=== PATIENT | male | born 1960 | race Caucasian/White ===

== ENCOUNTER 2018-04-21 15:08 | Inpatient (IN) | payer BC ==
[~2018-04-21] VITALS: Ht 179.1 cm; Wt 113.4 kg
[2018-04-21] MEDS ORDERED: LISINOPRIL40 MG PO (15:30)
[2018-04-21 18:03] LABS: BASOPHIL % 0.5 % (0-2); PLATELET COUNT 245 x10^3mcL (130-400); RED CELL DISTRIBUTION WIDTH 14.4 % (11.5-14.5)
[2018-04-21 18:08] LABS: CALCIUM 8.4 mg/dL (8.5-10.1); CARBON DIOXIDE 28.6 mmol/L (21-32); CHLORIDE SERUM 109 mmol/L (98-107); CREATININE SERUM 1.1 mg/dL (0.7-1.3); GFR1 > 60 mL/min; GLUCOSE SERUM 158 mg/dL (74-106); POTASSIUM SERUM 4.5 mmol/L (3.5-5.1); SODIUM SERUM 147 mmol/L (136-145)
[2018-04-21 18:12] LABS: ALBUMIN 3.8 g/dL (3.4-5.0); ALKALINE PHOSPHATASE 82 U/L (46-116); ALT/SGPT 67 U/L (16-63); AST/SGOT 34 U/L (15-37); BILIRUBIN TOTAL 0.28 mg/dL (0.20-1.00); LIPASE 127 IU/L (73-393); TOTAL PROTEIN, SERUM 7.1 g/dL (6.4-8.2)
[2018-04-21 18:50] LABS: T3 TOTAL 1.06 ng/mL
[2018-04-21 18:52] LABS: FREE T4 0.85 ng/dL (0.76-1.46); FREE THYROXINE INDEX 2.5 ug/dL (1.4-4.5); T4(THYROXINE) 7.5 ug/dL (4.7-13.3)
[2018-04-21 18:58] LABS: CHOLESTEROL/HDL RATIO 3.9; MAGNESIUM 1.9 mg/dL (1.8-2.4); PHOSPHOROUS 3.4 mg/dL (2.5-4.9)
[2018-04-21 19:17] LABS: microscopic required? YES; urine erythrocyte NEGATIVE (NEGATIVE)
[2018-04-21 19:32] LABS: AMPHETAMINE QUAL UR NONE DETECTED (NEG <=1000)
[2018-04-21 19:58] VITALS: BP 165/100
[2018-04-21 20:00] VITALS: BP 166/96
[2018-04-21 21:54] VITALS: BP 166/96
[2018-04-22] VITALS (9 sets, daily range): BP systolic 131–190; BP diastolic 75–110
[2018-04-22 06:33] LABS: CALCIUM 8.4 mg/dL (8.5-10.1); CARBON DIOXIDE 28.6 mmol/L (21-32); CHLORIDE SERUM 105 mmol/L (98-107); CREATININE SERUM 1.1 mg/dL (0.7-1.3); GFR1 > 60 mL/min; GLUCOSE SERUM 112 mg/dL (74-106); POTASSIUM SERUM 3.9 mmol/L (3.5-5.1); SODIUM SERUM 142 mmol/L (136-145)
[2018-04-22 07:49] LABS: BASOPHIL % 0.4 % (0-2); PLATELET COUNT 264 x10^3mcL (130-400); RED CELL DISTRIBUTION WIDTH 14.1 % (11.5-14.5)
[2018-04-23 05:36] VITALS: BP 126/72
[2018-04-23 06:01] LABS: CALCIUM 8.2 mg/dL (8.5-10.1); CARBON DIOXIDE 26.4 mmol/L (21-32); CHLORIDE SERUM 107 mmol/L (98-107); CREATININE SERUM 1.1 mg/dL (0.7-1.3); GFR1 > 60 mL/min; GLUCOSE SERUM 118 mg/dL (74-106); MAGNESIUM 2.1 mg/dL (1.8-2.4); PHOSPHOROUS 3.6 mg/dL (2.5-4.9); POTASSIUM SERUM 4.4 mmol/L (3.5-5.1); SODIUM SERUM 143 mmol/L (136-145)
[2018-04-23 06:05] LABS: BASOPHIL % 0.6 % (0-2); PLATELET COUNT 258 x10^3mcL (130-400); RED CELL DISTRIBUTION WIDTH 14.3 % (11.5-14.5)
[2018-04-23 08:33] VITALS: BP 126/72
[2018-04-23 09:11] VITALS: BP 140/83
[2018-04-23] MEDS ORDERED: LOSARTAN POTASS1 TAB PO (10:33)
[2018-04-23] MEDS ORDERED: NOR10 PO (11:42)
[2018-04-23] MEDS ORDERED: METAMUCIL PACK3.4 GM PO (11:44)
[2018-04-23 11:51] VITALS: BP 146/99
[2018-04-23] MEDS ORDERED: METFORMIN500 M1 PO (12:06)
[2018-04-23] MEDS ORDERED: BAY PO (12:08)
[2018-04-23] MEDS ORDERED: LIPI10 PO (12:08)
== END 2018-04-23 13:53 | disposition home or self-care (01) | DRG 73 ==
LOC: ED 15:08 → DU 17:49
PROVIDERS: Emergency Medicine; Family Medicine
DX: G90.8 Other disorders of autonomic nervous system (principal); N17.0 Acute kidney failure with tubular necrosis; I67.4 Hypertensive encephalopathy; E87.0 Hyperosmolality and hypernatremia; I10 Essential (primary) hypertension; Z60.2 Problems related to living alone; F17.210 Nicotine dependence, cigarettes, uncomplicated; E11.65 Type 2 diabetes mellitus with hyperglycemia; D72.829 Elevated white blood cell count, unspecified; E78.5 Hyperlipidemia, unspecified; R74.0 Nonspecific elevation of levels of transaminase and lactic acid dehydrogenase [LDH]; Z53.29 Procedure and treatment not carried out because of patient's decision for other reasons; K76.0 Fatty (change of) liver, not elsewhere classified; E66.9 Obesity, unspecified; Z91.14 Patient's other noncompliance with medication regimen; Z79.899 Other long term (current) drug therapy
CPT/HCPCS: 82962; 83880; 84439; 97110-GP; 97116-GP; 97530-GP; J2405; J2550; J7030; Q0092